=== PATIENT | male | born 1995 | race Caucasian/White ===

== ENCOUNTER 2025-01-30 10:49 | Emergency (ER) | payer MEDICARE, SELFPAY ==
[2025-01-30 10:51] VITALS: BP 125/78
--- NOTE | 2025-01-30 11:45 | ED.GENMED ---
History of Present Illness
General
Chief Complaint: Musculo-Skeletal Complaint
Time Seen by Provider: 01/30/25 11:14
History of Present Illness
History of Present Illness:
TIME OF INITIAL ENCOUNTER: 11:35 AM
HPI: The patient states that he rolled his right foot/ankle last night. He has ongoing pain primarily to the dorsal last of the right midfoot. He denies any other symptoms or concerns. He has been using his brother's crutches due to the ongoing
pain and difficulty walking.
EXAM:
GENERAL: Well appearing in no distress
HEENT: Moist oral mucosa
NEUROLOGIC: Excellent strength all extremities, no obvious coordination deficits
PSYCHIATRIC: Appropriate mental status, normal insight and judgement
EXTREMITIES: There is soft tissue swelling to the dorsal aspect of the right, there is no significant tenderness or swelling at the right ATF ligament region, there is no bony tenderness of the ankle
SKIN: No rash, no lesions
NUMBER AND COMPLEXITY OF PROBLEMS ADDRESSED AT THE ENCOUNTER
� Chronic conditions affecting care: Seizures, ADHD, ODD
� Acute Exacerbation and/or Progression of Chronic Illness: This is an acute problem
� Differential Diagnosis includes: Foot sprain, foot fracture
AMOUNT AND/OR COMPLEXITY OF DATA TO BE REVIEWED AND ANALYZED
� I performed an independent evaluation of and my interpretation is:
EKG:
CT:
X-rays: I personally viewed x-ray and see no acute abnormality
Laboratory Studies:
Other:
� Review of other/old records: The patient was seen in the emergency department about 10 years ago with convulsions
� Clinical information was obtained by an independent historian: I spoke to brother at bedside
� Prescriptions/Medications Considered but not given:
� Further testing considered but not performed:
RISK OF COMPLICATIONS AND/OR MORBIDITY OR MORTALITY OF PATIENT MANAGEMENT
� Social determinants of health affecting care: Lives at home
� Discussion with other providers:
� Escalation of care including admission/observation vs risk of discharge considered: The patient was given a boot and NSAIDs. I given the contact information for orthopedics if symptoms recur/persist
ANY OTHER UPDATES:
Phy Exam
Physical Exam
Physical Exam:
See HPI
Course
Orders/Labs/Results
Orders:
Orders
01/30/25 10:54
Foot, Right 3 View [CR Foot - Right Min 3 Views] Urgent
Comment:
Reason For Exam: pain
01/30/25 11:48
boot [Ortho Boot Right- Treatment] ONCE
Short or tall?: Short
Ibuprofen [Motrin] 600 mg PO NOW STA
Vital Signs
Initial and Last Documented VS:
Initial Vital Signs
Temp Pulse Resp BP Pulse Ox
36.6 C 82 18 125/78 98
01/30/25 10:51 01/30/25 10:51 01/30/25 10:51 01/30/25 10:51 01/30/25 10:51
Last Documented Vital Signs
Temp Pulse Resp BP Pulse Ox
36.6 C 82 18 125/78 98
01/30/25 10:51 01/30/25 10:51 01/30/25 10:51 01/30/25 10:51 01/30/25 10:51
*Critical Care Note
Total Time (30-74mins, 75-104mins- exclusive of procedures): Not Applicable
ED Attending Note
-
Portions of this chart may have been created with voice recognition software.� Occasional wrong word or��sound alike� substitutions may have occurred due to the inherent limitations of voice recognition software.
Discharge Plan
Departure
Patient Disposition: Home (Routine Discharge)
Date of Disposition: 01/30/25
Time of Disposition: 12:08
Patient with high blood pressure during this ER visit?: Yes
Discharge Problem:
Foot sprain
Instructions: Foot Sprain ED, BLOOD PRESSURE
Prescriptions:
No Action
No Current Medications
venlafaxine [Effexor] 37.5 MG tablet
37.5 mg PO DAILY
Referrals:
Ha Toledo MD [Family Provider] -
Boris Chambers MD [Active] - Follow up in 2-3 days
Activity Restrictions/Additional Instructions:
I recommend 3-4 [id number] ibuprofen (Motrin) every 8 hours with food for a few days. Return here if worse. If symptoms persist, I recommend that you follow-up with orthopedic such as Dr. Chambers.
Interventions
Interventions:
*Risk Screen - Suicide Last Done: 01/30/25 10:51
*General Assessment Last Done: 01/30/25 10:51
*Neglect/Abuse Screening Last Done: 01/30/25 10:51
*ED- Fall Risk Assessment Last Done: 01/30/25 10:51
*ED COVID-19 Vaccine History Last Done: 01/30/25 10:51
ED-Musculoskeletal Assessment Last Done: 01/30/25 11:02
Discharge Date and Time
Print Language: GREEK
[2025-01-30] MEDS: MOTRIN 600 MG PO (11:53)
== END 2025-01-30 12:23 | disposition home or self-care (01) ==
LOC: EMR 10:49
PROVIDERS: EMERGENCY PHYSICIAN Emergency Medicine; FAMILY PHYSICIAN Internal Medicine
DX: S93.601A Unspecified sprain of right foot, initial encounter (principal); X58.XXXA Exposure to other specified factors, initial encounter
CPT/HCPCS: 99283; 73630